=== PATIENT | female | born 1980 | race African-American/Black ===

== ENCOUNTER 2020-08-09 11:33 | Emergency (ER) | payer MEDICARE ==
[~2020-08-09] VITALS: Ht 177.8 cm; Wt 100.0 kg
[2020-08-09 12:48] LABS: BASOPHILS % (AUTO) 1 % (0-1); EOSINOPHILS % (AUTO) 2 % (1-7); LYMPHOCYTES % (AUTO) 41 % (22-44); MEAN CORPUSCULAR HEMOGLOBIN 32.2 pg (27.0-34.8); MEAN CORPUSCULAR HGB CONC 34.1 g/dL (32.4-35.8); MEAN PLATELET VOLUME 9.1 fL (7.4-10.4); MONOCYTES % (AUTO) 7 % (2-9); NEUTROPHILS % (AUTO) 49 % (42-75); PLATELET COUNT 239 x10^3/uL (130-400); RED BLOOD COUNT 4.53 x10^6/uL (3.82-5.3); RED CELL DISTRIBUTION WIDTH 15.3 % (9.6-15.2)
[2020-08-09 12:49] LABS: MD NO
[2020-08-09 12:56] LABS: ANION GAP 5 mmol/L (5-15); CALCIUM 8.7 mg/dL (8.5-10.1); CHLORIDE 109 mmol/L (98-107)
--- NOTE | 2020-08-09 12:59 | NUR ---
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
[2020-08-09 13:02] LABS: ALANINE AMINOTRANSFERASE 21 U/L (12-78); ALKALINE PHOSPHATASE 124 U/L (45-117); BILIRUBIN,TOTAL 0.4 mg/dL (0.2-1.0); CREATININE 0.87 mg/dL (0.55-1.02); TOTAL PROTEIN 7.2 g/dL (6.4-8.2); TROPONIN I < 0.015 ng/mL (0.000-0.045)
--- NOTE | 2020-08-09 13:05 | NUR ---
PT AMBULATED TO ROOM FROM LOBBY. PT CO LEFT CHEST PAIN THAT STARTED ON FRIDAY. PT STATED THAT SHE THINK SHE WOKE UP WITH THE PAIN AND IT HAS GOTTEN PROGESSIVELY WORSE OVER THE PAST COUPLE DAYS AND HURTS MORE WITH MOVEMENT AND DEEP BREATHING. PT DENIES SOB, FEVER, N/V/D.
[2020-08-09 13:09] LABS: ALBUMIN 3.5 g/dL (3.4-5.0)
[2020-08-09 13:15] VITALS: BP 174/117
--- NOTE | 2020-08-09 13:58 | NUR ---
DISCHARG INSTRUCTIONS REVIEWED WITH PT. ALL QUESTIONS ANSWERED AT THIS TIME.
== END 2020-08-09 14:02 | disposition home or self-care (01) ==
LOC: ED 13:50
DX: R07.89 Other chest pain (principal); I10 Essential (primary) hypertension; R42 Dizziness and giddiness; R94.31 Abnormal electrocardiogram [ECG] [EKG]
CPT/HCPCS: 36415; 71045; 80053; 84484; 85025; 93005; 99285